=== PATIENT | male | born 1935 | race Caucasian/White ===

== ENCOUNTER → 2017-08-23 12:07 | Outpatient (CLI) | payer MEDICARE, BC ==
[2014-11-18 07:38] VITALS: BMI 24.9
[~2017-08-23 12:07] MED LIST: JAKAFI; MULTIPLE VITAMI1 TA1 PO; PLAVIX75 MG PO; PREDNISONE50 MG
== END | disposition home or self-care (01) ==
LOC: D.CT 12:07 → D.US 13:30
DX: R91.1 Solitary pulmonary nodule (principal); R22.9 Localized swelling, mass and lump, unspecified

== ENCOUNTER 2019-10-28 06:38 | Inpatient (IN) | payer MEDICARE, BC ==
[~2019-10-28] VITALS: Ht 172.7 cm; Wt 88.5 kg
[2019-10-28] MEDS ORDERED: PERCOCET 7.5/321 TAB PO (06:45)
[2019-10-28] MEDS ORDERED: JAKAFI5 MG PO (06:46)
[2019-10-28] MEDS ORDERED: BACLOFEN20 M1 PO (06:46)
[2019-10-28 07:17] LABS: BASOPHILS 0.2 % (0-2); EOSINOPHILS 0.1 % (0-7); HEMATOCRIT 37.6 % (42.0-54.0); HEMOGLOBIN 12.6 g/dL (13.5-17.5); IMMATURE GRANULOCYTES 0.3 % (0-5); LYMPHOCYTES 1.8 % (15-50); MCH 27.8 pg (26.0-34.0); MCHC 33.5 g/dL (31.0-37.0); MCV 82.8 fL (80.0-100.0); MONOCYTES 7.9 % (2-11); NEUTROPHILS 89.7 % (40-80); RBC 4.54 10x6/uL (4.20-6.10); RDW 16.9 % (11.5-14.5); WBC 12.7 10x3/uL (4.8-10.8)
[2019-10-28 07:20] LABS: PLATELET COUNT 386 10x3/uL (130-400)
[2019-10-28 07:24] LABS: INR 1.12 (0.85-1.17); PROTIME 14.4 SECONDS (11.6-15.0)
[2019-10-28 07:25] LABS: APTT 36.9 SECONDS (22.8-39.4); CALC OSMOLALITY 282 mosm/kg (275-300); CALCIUM 9.5 mg/dL (8.5-10.1); CHLORIDE - SERUM 101 mmol/L (98-107); CREATININE - SERUM 1.6 mg/dL (0.6-1.3); GLUCOSE 150 mg/dL (74-106); SODIUM 138 mmol/L (136-145); UREA NITROGEN 25 mg/dL (7-18); eGFR NON AFRICAN AMERICAN 44 mL/min (90-120)
--- NOTE | 2019-10-28 07:32 | NUR ---
URINE SPECIMEN COLLECTED AND SENT TO LAB VIA TUBE SYSTEM.
--- NOTE | 2019-10-28 07:35 | NUR ---
PT TO CT AT THIS TIME.
[2019-10-28 07:39] VITALS: BP 162/91
[2019-10-28 07:42] LABS: ALBUMIN 3.2 g/dL (3.4-5.0); ALKALINE PHOSPHATASE 71 U/L (30-120); ALT (SGPT) 34 U/L (10-68); BILIRUBIN - TOTAL 0.59 mg/dL (0.2-1.3); CKMB 2.6 U/L (0.0-3.6); CREATINE KINASE 171 UL (21-232); MAGNESIUM - SERUM 2.2 mg/dL (1.8-2.4); PROTEIN - SERUM 8.1 g/dL (6.4-8.2); THYROID STIMULATING HORMONE 3.26 uIU/mL (0.36-3.74)
[2019-10-28 07:49] LABS: BILIRUBIN NEGATIVE (NEGATIVE); GLUCOSE NEGATIVE (NEGATIVE); KETONE SMALL mg/dL (NEGATIVE); NITRITE NEGATIVE (NEGATIVE); SPECIFIC GRAVITY 1.015 (1.005-1.020); UROBILINOGEN NORMAL (NORMAL)
[2019-10-28 07:52] LABS: EPITHELIAL CELLS 0-5 /hpf (0-5); RED CELLS - URINE 0-5 /hpf (0-5); WHITE CELLS - URINE 0-5 /hpf (NEGATIVE)
[2019-10-28 07:53] LABS: BACTERIA FEW /hpf (NEGATIVE); HYALINE CAST 0-5 /lpf (NONE SEEN)
[2019-10-28 07:53] LABS: TROPONIN-I < 0.017 ng/mL (0.000-0.060)
[2019-10-28 08:13] LABS: UDS - AMPHET NEGATIVE QUAL (NEGATIVE); UDS - BARB NEGATIVE QUAL (NEGATIVE); UDS - BENZO NEGATIVE QUAL (NEGATIVE); UDS - COCAINE NEGATIVE QUAL (NEGATIVE); UDS - OPIATE POSITIVE QUAL (NEGATIVE); UDS - PCP NEGATIVE QUAL (NEGATIVE); UDS - THC POSITIVE QUAL (NEGATIVE)
[2019-10-28 08:49] VITALS: BP 142/70
--- NOTE | 2019-10-28 09:20 | NUR ---
1500ML NS BOLUS COMPLETE. PT IS BEING TRANSFERRED TO ROOM 2102 WITH REMAINING (1000ML) NS BOLUS.
[2019-10-28 10:04] VITALS: BP 165/92
[2019-10-28 13:58] VITALS: BP 184/78
[2019-10-28 14:52] VITALS: BMI 29.7
[2019-10-28 17:38] VITALS: BP 160/83
--- NOTE | 2019-10-28 19:00 | NUR ---
REPORT RECEIVED. BEDSIDE SHIFT REPORT COMPLETE. PT SCREAMING, STATING "ITS A KINDNEY STONE" UNABLE TO REDIRECT. ALERT TO SELF ONLY. RR EVEN AND UNLABORED ON 2L NC. PIV FLUIDS INFUSING ORDERED. NO S/SX OF DISTRESS OBSERVED. WILL CTM.
[2019-10-28 20:00] VITALS: BP 166/88
[2019-10-29 04:00] VITALS: BP 180/96
--- NOTE | 2019-10-29 05:05 | NUR ---
PT C/O N/V. PROVIDED ZOFRAN PER PRN ORDER. WILL CTM.
[2019-10-29 06:43] LABS: BASOPHILS 0.1 % (0-2); EOSINOPHILS 0.2 % (0-7); HEMATOCRIT 33.2 % (42.0-54.0); IMMATURE GRANULOCYTES 0.2 % (0-5); LYMPHOCYTES 2.5 % (15-50); MCH 27.7 pg (26.0-34.0); MCHC 33.1 g/dL (31.0-37.0); MCV 83.6 fL (80.0-100.0); MEAN PLATELET VOLUME 9.1 fL (7.4-10.4); MONOCYTES 10.5 % (2-11); NEUTROPHILS 86.5 % (40-80); RBC 3.97 10x6/uL (4.20-6.10); RDW 17.1 % (11.5-14.5)
[2019-10-29 06:49] LABS: PLATELET COUNT 299 10x3/uL (130-400); WBC 8.8 10x3/uL (4.8-10.8)
[2019-10-29 07:11] LABS: ALBUMIN 2.8 g/dL (3.4-5.0); ANION GAP 15.7 mmol/L (8-16); BILIRUBIN - TOTAL 0.58 mg/dL (0.2-1.3); CALCIUM 8.1 mg/dL (8.5-10.1); CARBON DIOXIDE 26.1 mmol/L (21.0-32.0); CREATININE - SERUM 1.2 mg/dL (0.6-1.3); POTASSIUM - SERUM 3.8 mmol/L (3.5-5.1); PROTEIN - SERUM 7.2 g/dL (6.4-8.2); VANCOMYCIN - RANDOM 4.5 ug/mL (10.0-20.0)
[2019-10-29 07:20] VITALS: BP 164/91
--- NOTE | 2019-10-29 09:37 | NUR ---
PT'S GAVE SHIRINAFI WITH THIS NURSE AT BEDSIDE.
[2019-10-29 11:00] VITALS: BP 163/81
--- NOTE | 2019-10-29 13:07 | NUR ---
PT TAKEN TO MRI VIA STRETCHER. TOOK FOUR STAFF TO TRANSFER PT.
[2019-10-29 13:08] VITALS: Ht 172.7 cm; Wt 88.5 kg
--- NOTE | 2019-10-29 14:57 | NUR ---
OT NOTE: PT VERY CONFUSED IN AM.. REFUSED TO DO ANYTHING WITHOUT HIS WIFES APPROVAL AND NO FAMILY IN ROOM AT TIME. CHECKED ON PT LATER AND HE WAS TAKEN FOR MRI.. WILL RE ATTEMPT TOMORROW. MELLO TOMLINSON, OTR/L
--- NOTE | 2019-10-29 15:59 | NUR ---
I have reviewed this patient and I concur with the Shift Assessment completed by the Licensed Practical Nurse today this shift.
--- NOTE | 2019-10-29 16:30 | MORECARE ---
CASE MANAGEMENT DISCHARGE SUMMARY PATIENT: CASE GUERRA UNIT: [id number] ADM DATE: 10/28/19 AGE: 84 : 37 SEX: M ROOM/BED: D.210 AUTHOR: CARLOS SANTANA PHYSICIAN: REFERRING PHYSICIAN: LONNIE DE SANTIAGO MD DATE OF SERVICE: 10/29/19 Discharge Plan Patient Name: CASE GUERRA [facility] [facility] 1935 Planned Disposition: Inpatient Rehab Anticipated Discharge Date: 10/29/19 Discharge Date: Expected LOS: 1 Initial Reviewer: [email or web address] Initial Review Date: 10/29/2019 Generated: 10/29/19 5:30 pm Patient Name: CASE GUERRA Page 80167 at 1630 All edits/amendments must be made on the electronic document DICTATION DATE: 10/29/19 1630 LEAD IOS DEVELOPER: BERLIN 10/29/19 1630 RPT#: [id number] DC DATE: STATUS: ADM IN [facility] [address] [place] [address] END OF REPORT
--- NOTE | 2019-10-29 16:37 | MORECARE ---
CASE MANAGEMENT DISCHARGE SUMMARY PATIENT: CASE GUERRA UNIT: [id number] ADM DATE: 10/28/19 AGE: 84 : 37 SEX: M ROOM/BED: D.2102 AUTHOR: CARLOS SANTANA PHYSICIAN: REFERRING PHYSICIAN: LONNIE DE SANTIAGO MD DATE OF SERVICE: 10/29/19 Discharge Plan Patient Name: CASE GUERRA [facility] [facility] 1935 Planned Disposition: Inpatient Rehab Anticipated Discharge Date: 10/29/19 Discharge Date: Expected LOS: 1 Initial Reviewer: [email or web address] Initial Review Date: 10/29/2019 Generated: 10/29/19 5:37 pm DCPIA - Discharge Planning Initial Assessment Updated by [id number]: Tommy Gooden on 10/29/19 4:34 pm * Is the patient Alert and Oriented? Yes * How many steps to enter\exit or inside your home? * PCP DR FLANAGAN * [facility]acy [facility] * Preadmission Environment Home with Family * ADLs Independent * Equipment None * Other Equipment NO MEDICAL EQUIPMENT PROVIDER PREFERENCE * List name and contact numbers for known caregivers / representatives who currently or will assist patient after discharge: SHEMAR ROWLAND, SPOUSE, * Verbal permission to speak to the caregivers and representatives has been obtained from the patient. N/A * Community resources currently utilized None * Please name any agencies selected above. NONE * Additional services required to return to the preadmission environment? Yes * Can the patient safely return to the preadmission environment? Yes Last DP export: 10/29/19 3:30 p Patient Name: CASE GUERRA Page [id number] at 1637 All edits/amendments must be made on the electronic document DICTATION DATE: 10/29/19 163 WILDLIFE MANAGER: BERLIN 10/29/19 1637 RPT#: [id number] DC DATE: STATUS: ADM IN [facility] [address] [place] [address] END OF REPORT
--- NOTE | 2019-10-29 16:45 | MORECARE ---
CASE MANAGEMENT DISCHARGE SUMMARY PATIENT: CASE GUERRA UNIT: [id number] ADM DATE: 10/28/19 AGE: 84 : 37 SEX: M ROOM/BED: D.2104 AUTHOR: ESTHER,DOC PHYSICIAN: REFERRING PHYSICIAN: LONNIE DE SANTIAGO MD DATE OF SERVICE: 10/29/19 Discharge Plan Patient Name: CASE GUERRA Facility: [facility]:[place] : 1935 Planned Disposition: Inpatient Rehab Anticipated Discharge Date: 10/29/19 Discharge Date: Expected LOS: 1 Initial Reviewer: VERONICA Initial Review Date: 10/29/2019 Generated: 10/29/19 5:45 pm Comments DCP- Discharge Planning Updated by VERONICA: Tommy Gooden on 10/29/19 3:[address] Patient Name: CASE GUERRA Encounter No: [id number] : 1935 Primary Insurance: MEDICARE A & B Anticipated DC Date: 10-29-2019 Planned Disposition: Inpatient Rehab External Planned Provider: [facility] RE[facility] DISCHARGE PLANNING NOTE: CM MET WITH PT IN ROOM TO DISCUSS DISCHARGE PLANNING AND NEEDS. PT REPORTS LIVING AT HOME INDEPENDENTLY WITH HIS . PT HAS NO MEDICAL EQUIPMENT AND NO OUTSIDE SERVICES ASSISTING IN THE HOME. CM DISCUSSED AVAILABILITY OF HOME HEALTH, REHAB SERVICES AND MEDICAL EQUIPMENT. PT DOES NOT KNOW WHAT HE NEEDS, ASKED CM TO CALL HIS ; PT STATES THEY ARE FOR TAX REASONS, BUT SHE WILL MAKE ANY DECISIONS FOR HIM THEY HAVE TOLD HIM THAT HE HAS BEEN HAVING HALLUCINATIONS. PT DOES NOT REMEMBER THIS, BUT WOULD PREFER CM CALL HIS . PT REPORTS HIS WILL PICK HIM UP FOR DISCHARGE HOME. CM CALLED SHEMAR JANETT, , WHO INFORMED CM THAT PT HAS TO BE ABLE TO STAND UP AND WALK, SHE WAS NOT ABLE TO QUALITY OFFICER PT AT HOME AFTER HE FELL IN THE FLOOR. SHE WOULD LIKE PT TO HAVE REHAB IN THE INPATIENT REHAB AT [place] IF THEY WILL ACCEPT. CHOICE COMPLETED. LANIE BLANCHARD NOTIFIED. CM WAITING ORDER AND INPATIENT REHAB PRESCREENING FROM [facility].. Tommy Gooden, CASE MANAGEMENT DCPIA - Discharge Planning Initial Assessment Updated by [id number]: Tommy Gooden on 10/29/19 4:34 pm * Is the patient Alert and Oriented? Yes * How many steps to enter\exit or inside your home? * PCP DR FLANAGAN * [facility] * Preadmission Environment Home with Family * ADLs Independent * Equipment None * Other Equipment NO MEDICAL EQUIPMENT PROVIDER PREFERENCE * List name and contact numbers for known caregivers / representatives who currently or will assist patient after discharge: SHEMAR ROWLAND, SPOUSE, * Verbal permission to speak to the caregivers and representatives has been obtained from the patient. N/A * Community resources currently utilized None * Please name any agencies selected above. NONE * Additional services required to return to the preadmission environment? Yes * Can the patient safely return to the preadmission environment? Yes Coverage Notice Reviewer: [id number] - Tommy Gooden Notice Issued Date-Time: 10/29/2019 14:20 Notice Type: Patient Choice Letter Notice Delivered To: Family Member Relationship to Patient: Spouse Hot Wort Settler Name: SHEMAR ROWLAND Delivery Method: PHONE - Phone Kaelyn Days: Prior Verbal Notification: Recipient Understood Notice: Yes Recipient Signature: Med Rec Note Co-signed by Attending: Coverage Notice Comment: [facility] INPATIENT REH[facility] Last DP export: 10/29/19 3:37 p Patient Name: CASE GUERRA Page [id number] at 1645 All edits/amendments must be made on the electronic document DICTATION DATE: 10/29/191644 PATIENT ACCOUNTS MANAGER: BERLIN 10/29/191644 RPT#: [id number] DC DATE: STATUS: ADM IN [facility] [address] [place] [address] END OF REPORT
--- NOTE | 2019-10-29 19:03 | NUR ---
WATCHED PT TAKE HOME MED STEPHANIE.
--- NOTE | 2019-10-29 19:45 | NUR ---
EVENING ROUNDS COMPLETED. PT ALERT BUT CONFUSED. PT HAS BEEN MUMBLING INAPROPRIATE WORDS. SPOUSE AT BEDSIDE. PT ORIENTED TO ROOM. CL WITHIN REACH. PT DENIES ANY FURTHER NEEDS AT THIS TIME. WILL CPOC.
[2019-10-29 20:00] VITALS: BP 150/73
[2019-10-30 01:22] VITALS: BP 161/75
[2019-10-30 05:18] LABS: BASOPHILS 0.1 % (0-2); EOSINOPHILS 0.5 % (0-7); HEMATOCRIT 32.9 % (42.0-54.0); HEMOGLOBIN 10.6 g/dL (13.5-17.5); IMMATURE GRANULOCYTES 0.2 % (0-5); MCH 27.5 pg (26.0-34.0); MCHC 32.2 g/dL (31.0-37.0); MCV 85.5 fL (80.0-100.0); MEAN PLATELET VOLUME 8.9 fL (7.4-10.4); MONOCYTES 9.4 % (2-11); NEUTROPHILS 80.8 % (40-80); RBC 3.85 10x6/uL (4.20-6.10); RDW 17.3 % (11.5-14.5); WBC 8.5 10x3/uL (4.8-10.8)
[2019-10-30 05:19] LABS: PLATELET COUNT 239 10x3/uL (130-400)
[2019-10-30 05:32] LABS: ALBUMIN 2.6 g/dL (3.4-5.0); ANION GAP 8.3 mmol/L (8-16); BILIRUBIN - TOTAL 0.58 mg/dL (0.2-1.3); CALCIUM 8.2 mg/dL (8.5-10.1); CARBON DIOXIDE 30.3 mmol/L (21.0-32.0); CREATININE - SERUM 1.2 mg/dL (0.6-1.3); MAGNESIUM - SERUM 2.1 mg/dL (1.8-2.4); POTASSIUM - SERUM 3.6 mmol/L (3.5-5.1); PROTEIN - SERUM 6.7 g/dL (6.4-8.2); VANCOMYCIN - RANDOM 6.5 ug/mL (10.0-20.0)
[2019-10-30 05:55] VITALS: BP 148/73
--- NOTE | 2019-10-30 07:30 | NUR ---
A/A/OX4. STATES HE WAS VERY CONFUSED WHEN HE CAME IN BUT THINGS HAVE CLEARED NOW. APPEARS TO BE VERY HAPPY AND JOKING WITH THE STAFF. DENIES ANY PAIN AT THIS TIME ALTHOUGH SOMETIMES HE WILL HAVE SPASMS IN HIS RIGHT HIP. NO REQUESTS VOICED. IV PATENT AND INFUSING WELL WITHOUT DIFFICULTY. 02 ON PER N/C AT 2 L/M WITH RESP EVEN AND UNLABORED. SIDERAILS UP X 2, BED IN LOW LOCKED POSITION AND CALL LIGHT IN REACH. AT BEDSIDE.
[2019-10-30 09:41] VITALS: BP 136/72; BP 170/84
--- NOTE | 2019-10-30 10:04 | MORECARE ---
CASE MANAGEMENT DISCHARGE SUMMARY PATIENT: CASE GUERRA UNIT: [id number] ADM DATE: 10/28/19 AGE: 84 : 37 SEX: M ROOM/BED: D.2102 AUTHOR: CARLOS SANTANA PHYSICIAN: REFERRING PHYSICIAN: LONNIE DE SANTIAGO MD DATE OF SERVICE: 10/30/19 Discharge Plan Patient Name: CASE GUERRA Facility: [facility]:[place] : 1935 Planned Disposition: Inpatient Rehab Anticipated Discharge Date: 10/29/19 Discharge Date: Expected LOS: 1 Initial Reviewer: [id number] Initial Review Date: 10/29/2019 Generated: 10/30/19 11:04 am Comments DCP- Discharge Planning Updated by [id number]: Tommy Gooden on 10/30/19 9:[address] Patient Name: CASE GUERRA Encounter No: [id number] : 1935 Primary Insurance: MEDICARE A & B Anticipated DC Date: 10-29-2019 Planned Disposition: Inpatient Rehab External Planned Provider: [facility] INPATIENT REHAB DCP follow-up note: CM SPOKE TO PT'S SPOUSE IN [facility] WHO REQUESTED UPDATE ON REHAB REQUEST FOR [place] INPATIENT REHAB. CM EXPLAINED THAT ORDER FOR INPATIENT REHAB PRESCREEN HAS BEEN ENTERED AND EXPLAINED PROCESS OF EVALUATION. IMPORTANT MESSAGE FROM MEDICARE PROVIDED AND EXPLAINED. CM WAITING RESULT OF INPATIENT REHAB PRESCREEN BY [facility] INPATIENT REH[facility]. CR Alonso DCP- Discharge Planning Updated by [id number]: Tommy Gooden on 10/29/19 3:[address] Patient Name: CASE GUERRA Encounter No: [id number] : 1935 Primary Insurance: MEDICARE A & B Anticipated DC Date: 10-29-2019 Planned Disposition: Inpatient Rehab External Planned Provider: [facility] INPATIENT REH[facility] DISCHARGE PLANNING NOTE: CM MET WITH PT IN ROOM TO DISCUSS DISCHARGE PLANNING AND NEEDS. PT REPORTS LIVING AT HOME INDEPENDENTLY WITH HIS . PT HAS NO MEDICAL EQUIPMENT AND NO OUTSIDE SERVICES ASSISTING IN THE HOME. CM DISCUSSED AVAILABILITY OF HOME HEALTH, REHAB SERVICES AND MEDICAL EQUIPMENT. PT DOES NOT KNOW WHAT HE NEEDS, ASKED CM TO CALL HIS ; PT STATES THEY ARE FOR TAX REASONS, BUT SHE WILL MAKE ANY DECISIONS FOR HIM THEY HAVE TOLD HIM THAT HE HAS BEEN HAVING HALLUCINATIONS. PT DOES NOT REMEMBER THIS, BUT WOULD PREFER CM CALL HIS . PT REPORTS HIS WILL PICK HIM UP FOR DISCHARGE HOME. CM CALLED SHEMAR ROWLAND, , WHO INFORMED CM THAT PT HAS TO BE ABLE TO STAND UP AND WALK, SHE WAS NOT ABLE TO COMMUNITY AIDE PT AT HOME AFTER HE FELL IN THE FLOOR. SHE WOULD LIKE PT TO HAVE REHAB IN THE INPATIENT REHAB AT [place] IF THEY WILL ACCEPT. CHOICE COMPLETED. LANIE BLANCHARD NOTIFIED. CM WAITING ORDER AND INPATIENT REHAB PRESCREENING FROM [facility] INPAT[facility].. Tommy Gooden, CASE MANAGEMENT DCPIA - Discharge Planning Initial Assessment Updated by VERONICA: Tommy Gooden on 10/29/19 4:34 pm * Is the patient Alert and Oriented? Yes * How many steps to enter\exit or inside your home? * PCP DR FLANAGAN * [facility] * Preadmission Environment Home with Family * ADLs Independent * Equipment None * Other Equipment NO MEDICAL EQUIPMENT PROVIDER PREFERENCE * List name and contact numbers for known caregivers / representatives who currently or will assist patient after discharge: SHEMAR ROWLAND, SPOUSE, * Verbal permission to speak to the caregivers and representatives has been obtained from the patient. N/A * Community resources currently utilized None * Please name any agencies selected above. NONE * Additional services required to return to the preadmission environment? Yes * Can the patient safely return to the preadmission environment? Yes Coverage Notice Reviewer: [id number] Samantha Gooden Notice Issued Date-Time: 10/29/2019 14:20 Notice Type: Patient Choice Letter Notice Delivered To: Family Member Relationship to Patient: Spouse Education And Training Manager Name: SHEMAR ROWLAND Delivery Method: PHONE - Phone Kaelyn Days: Prior Verbal Notification: Recipient Understood Notice: Yes Recipient Signature: Med Rec Note Co-signed by Attending: Coverage Notice Comment: [facility] INPATIENT REH[facility] Reviewer: [id number] Gooden Notice Issued Date-Time: 10/30/2019 8:40 Notice Type: IM Discharge Notice Notice Delivered To: Patient Relationship to Patient: Education And Training Manager Name: Delivery Method: HAND - Hand Delivered Kaelyn Days: Prior Verbal Notification: Recipient Understood Notice: Yes Recipient Signature: Yes Med Rec Note Co-signed by Attending: Coverage Notice Comment: Last DP export: 10/29/19 3:45 p Patient Name: CASE GUERRA Page [phone] at 1004 All edits/amendments must be made on the electronic document DICTATION DATE: 10/30/19 1004 SAS ETL DEVELOPER: BERLIN 10/30/19 1004 RPT#: [id number] DC DATE: STATUS: ADM IN [facility] [address] [place] [address] END OF REPORT
--- NOTE | 2019-10-30 11:09 | NUR ---
Rehab Note- Acute Inpatient Rehab prescreen order received. The patient has a pending PT Eval that was unable to be completed 10/29/2019 due to patient not being able to participate. The patient has to be able to participate in the required 3hrs/day of therapy for inpatient acute rehab stay. Will continue to follow at this time. Thank you for this referral! Olena Dang RN Clinical Liaison, [facility] Rehab
--- NOTE | 2019-10-30 11:24 | NUR ---
PT WAS SITTING ON SIDE OF BED WITH PHYSICAL THERAPY AND THEY STATE HE STARTED HAVING WHAT LOOKED LIKE A SEIZURE AND THEN FELL BACK ON BED AND STOPPED BREATHING. CODE JOSE CALLED. PT WAS PRONOUNCED AT 1154.
--- NOTE | 2019-10-30 11:30 | NUR ---
SPOKE WITH SHEMAR WEEMS'S AND NOTIFIED HER PT COLAPSED DURING THERAPY AND BECAME UNRESPONSIVE. PT WAS STILL BREATHING AND HAD A PULSE. RAPID RESPONSE WAS CALLED AND PT STOPPED BREATHING AND HAD NO PULSE. BECKY GARCIA WAS CALLED AND CPR WAS STARTED. WE NEED CONSENT FOR ITUBATION AND TO CONTINUE DOING CPR UNLESS SHE WANTS TO PLACE PT A DNR. SHE STATES TO DO EVERYTHING FOR PT INTUBATION AND ALL. VERIFIED CONSENT WITH KRZYSZTOF RUBY. NOTIFIED CODE TEAM.
--- NOTE | 2019-10-30 13:45 | NUR ---
OT NOTE: MET WITH PT THIS AM. PT MUCH MORE ALERT AND LESS CONFUSED THAN YESTERDAY. PT AGREEABLE TO SIT UP ON SIDE OF BED. STATED THAT HE KNEW IT WAS GOING TO HURT HIS BUTT, BUT HE WAS GOING TO HAVE TO PUSH THROUGH THE PAIN. STATED THAT HE KNEW HE COULD WALK IF HE COULD JUST GET THROUGH THE SITTING UP PHASE. PT ABLE TO PERFORM SUPINE TO SIT WITH MIN ASSIST; STATIC SITTING ON EOB WITHOUT SUPPORT. MAX ASSIST TO RIZWANA SOCKS AND MIN ASSIST WITH GOWN. PT TALKING WITH THERAPISTS THE WHOLE TIME; VERY COHERANT AND KNEW THAT HE HAD BEEN CONFUSED BECAUSE HIS TOLD HIM, BUT VERY MINIMAL CONFUSION NOTED TODAY. PT STATED THAT HE HAD TO USE THE URINAL AND ASKED THE THERAPISTS (PT AND OT) TO STEP OUTSIDE THE ROOM. PT STATED THAT HE WAS EMBARRESSED TO USE URINAL IN FRONT OF LADIES. PT STATED THAT HE WOULD NOT STAND UP AND THAT HE COULD USE URINAL IN SEATED POSITION. PROVIDED PT WITH URINAL AND STEPPED OUTSIDE THE DOOR. PT CONT TO STATE THAT HE WAS FINE AND THAT HE WAS STILL GOING TO THE BATHROOM. ALL OF A SUDDEN, THERAPIST HEARD PT SAY, " MAN THIS IS MAKING ME DIZZY". STEPPED INTO ROOM AND PT WAS FALLING BACKWARDS(FROM SEATED POSITION) ONTO BED. PT APPEARED TO BE HAVING SEIZURE LIKE ACTIVITY. HE WAS NOT CONVULSING, BUT HIS BODY WAS STIFF AND HIS EYES WERE OPEN. CALLED PTS NAME WITH OUT RESPONSE; CALLED NURSING WHO IN TURN CALLED A RAPID RESPONSE. ATTEMPTED STERNAL RUB WITH NO RESPONSE. WITH ASSIST OF NURSING, MOVED PT ALL THE WAY UP IN BED. NURSING AND REMAINDER OF STAFF TOOK OVER AT THIS TIME VICK HOANG/Chiquita
--- NOTE | 2019-10-31 08:41 | MORECARE ---
CASE MANAGEMENT DISCHARGE SUMMARY PATIENT: CASE GUERRA UNIT: [id number] ADM DATE: 10/28/19 AGE: 84 : 37 SEX: M ROOM/BED: D.2102 AUTHOR: ESTHERDOC PHYSICIAN: REFERRING PHYSICIAN: LONNIE DE SANTIAGO MD DATE OF SERVICE: 10/31/19 Discharge Plan Patient Name: CASE GUERRA Facility: [facility]:[place] : 1935 Planned Disposition: Anticipated Discharge Date: 10/30/19 Discharge Date: 10/30/2019 Expected LOS: 2 Initial Reviewer: [id number] Initial Review Date: 10/29/2019 Generated: 10/31/19 9:41 am Comments DCP- Discharge Planning Updated by [email or web address]: Tommy Gooden on 10/30/19 9:[address] Patient Name: CASE GUERRA Encounter No: [id number] : 1935 Primary Insurance: MEDICARE A & B Anticipated DC Date: 10-29-2019 Planned Disposition: Inpatient Rehab External Planned Provider: [facility] INPATIENT REH[facility] DCP follow-up note: CM SPOKE TO PT'S SPOUSE IN [facility] WHO REQUESTED UPDATE ON REHAB REQUEST FOR [facility] REHAB. CM EXPLAINED THAT ORDER FOR INPATIENT REHAB PRESCREEN HAS BEEN ENTERED AND EXPLAINED PROCESS OF EVALUATION. IMPORTANT MESSAGE FROM MEDICARE PROVIDED AND EXPLAINED. CM WAITING RESULT OF INPATIENT REHAB PRESCREEN BY [facility] INPATIENT [facility]. CR Alonso DCP- Discharge Planning Updated by [id number]: Tommy Gooden on 10/29/19 3:[address] Patient Name: CASE GUERRA Encounter No: [id number] : 1935 Primary Insurance: MEDICARE A & B Anticipated DC Date: 10-29-2019 Planned Disposition: Inpatient Rehab External Planned Provider: [facility] INPATIENT RE[facility] DISCHARGE PLANNING NOTE: CM MET WITH PT IN ROOM TO DISCUSS DISCHARGE PLANNING AND NEEDS. PT REPORTS LIVING AT HOME INDEPENDENTLY WITH HIS . PT HAS NO MEDICAL EQUIPMENT AND NO OUTSIDE SERVICES ASSISTING IN THE HOME. CM DISCUSSED AVAILABILITY OF HOME HEALTH, REHAB SERVICES AND MEDICAL EQUIPMENT. PT DOES NOT KNOW WHAT HE NEEDS, ASKED CM TO CALL HIS ; PT STATES THEY ARE FOR TAX REASONS, BUT SHE WILL MAKE ANY DECISIONS FOR HIM THEY HAVE TOLD HIM THAT HE HAS BEEN HAVING HALLUCINATIONS. PT DOES NOT REMEMBER THIS, BUT WOULD PREFER CM CALL HIS . PT REPORTS HIS WILL PICK HIM UP FOR DISCHARGE HOME. CM CALLED SHEMAR ROWLAND, , WHO INFORMED CM THAT PT HAS TO BE ABLE TO STAND UP AND WALK, SHE WAS NOT ABLE TO ELECTROMECHANISMS DESIGN DRAFTER PT AT HOME AFTER HE FELL IN THE FLOOR. SHE WOULD LIKE PT TO HAVE REHAB IN THE INPATIENT REHAB AT [place] IF THEY WILL ACCEPT. CHOICE COMPLETED. LANIE BLANCHARD NOTIFIED. CM WAITING ORDER AND INPATIENT REHAB PRESCREENING FROM [facility] INPATIENT [facility].. Tommy Gooden, CASE MANAGEMENT DCPIA - Discharge Planning Initial Assessment Updated by VERONICA: Tommy Gooden on 10/29/19 4:34 pm * Is the patient Alert and Oriented? Yes * How many steps to enter\exit or inside your home? * PCP DR FLANAGAN * [facility]acy [facility] * Preadmission Environment Home with Family * ADLs Independent * Equipment None * Other Equipment NO MEDICAL EQUIPMENT PROVIDER PREFERENCE * List name and contact numbers for known caregivers / representatives who currently or will assist patient after discharge: SHEMAR ROWLAND, SPOUSE, * Verbal permission to speak to the caregivers and representatives has been obtained from the patient. N/A * Community resources currently utilized None * Please name any agencies selected above. NONE * Additional services required to return to the preadmission environment? Yes * Can the patient safely return to the preadmission environment? Yes Coverage Notice Reviewer: [id number] Samantha Gooden Notice Issued Date-Time: 10/29/2019 14:20 Notice Type: Patient Choice Letter Notice Delivered To: Family Member Relationship to Patient: Spouse Preservative Filler Machine Operator Name: SHEMAR ROWLAND Delivery Method: PHONE - Phone Kaelyn Days: Prior Verbal Notification: Recipient Understood Notice: Yes Recipient Signature: Med Rec Note Co-signed by Attending: Coverage Notice Comment: [facility] Reviewer: [id number] Gooden Notice Issued Date-Time: 10/30/2019 8:40 Notice Type: IM Discharge Notice Notice Delivered To: Patient Relationship to Patient: Preservative Filler Machine Operator Name: Delivery Method: HAND - Hand Delivered Kaelyn Days: Prior Verbal Notification: Recipient Understood Notice: Yes Recipient Signature: Yes Med Rec Note Co-signed by Attending: Coverage Notice Comment: Last DP export: 10/30/19 9:04 a Patient Name: CASE GUERRA Page 51524 at 0841 All edits/amendments must be made on the electronic document DICTATION DATE: 10/31/19840 RIPSAW MATCHER: BERLIN 10/31/19840 RPT#: [id number] DC DATE:10/30/19 STATUS: DIS IN [facility] [address] [place] [address] END OF REPORT
== END 2019-10-30 14:55 | DRG 177 ==
LOC: D.ER 06:38 → D.M2 08:26
PROVIDERS: Family Medicine; ADMIT Internal Medicine Nephrology; ATTEND Internal Medicine Nephrology
PROC: 0BH17EZ Insertion of Endotracheal Airway into Trachea, Via Natural or Artificial Opening (ICD-10-PCS; principal; 2019-10-29)
DX: J69.0 Pneumonitis due to inhalation of food and vomit (principal); G93.41 Metabolic encephalopathy; J96.90 Respiratory failure, unspecified, unspecified whether with hypoxia or hypercapnia; D75.81 Myelofibrosis; N17.9 Acute kidney failure, unspecified; C34.90 Malignant neoplasm of unspecified part of unspecified bronchus or lung; J44.1 Chronic obstructive pulmonary disease with (acute) exacerbation; D64.9 Anemia, unspecified; F12.90 Cannabis use, unspecified, uncomplicated; R40.2353 Coma scale, best motor response, localizes pain, at hospital admission; R40.2143 Coma scale, eyes open, spontaneous, at hospital admission; R40.2243 Coma scale, best verbal response, confused conversation, at hospital admission